=== PATIENT | female | born 1955 | race Caucasian/White ===

== ENCOUNTER 2017-02-20 10:40 | Day surgery (SDC) | payer BC ==
[~2017-02-20] VITALS: Ht 170.2 cm; Wt 64.9 kg
[~2017-02-20 10:40] MED LIST: Armour Thyroid90 MG PO; ESCI10 PO; METO25ER PO; TRAZ50 PO; ZOLP10 PO
== END 2017-02-20 12:15 | disposition home or self-care (01) ==
LOC: ORSCSDS 10:40
PROVIDERS: Surgery
PROC: 0DBP8ZX Excision of Rectum, Via Natural or Artificial Opening Endoscopic, Diagnostic (ICD-10-PCS; principal; 2017-02-20 12:00)
DX: Z12.11 Encounter for screening for malignant neoplasm of colon (principal); Z80.0 Family history of malignant neoplasm of digestive organs; Z87.891 Personal history of nicotine dependence; Z98.84 Bariatric surgery status; F41.8 Other specified anxiety disorders; Z79.899 Other long term (current) drug therapy
CPT/HCPCS: 88305

== ENCOUNTER → 2018-06-23 | Outpatient (CLI) | payer BC | END | disposition home or self-care (01) | LOC: LAB SHORT 11:32 → PLD 11:32 | DX: D22.5 Melanocytic nevi of trunk (principal) | CPT/HCPCS: 88305 ==

== ENCOUNTER 2019-07-20 11:45 | Emergency (ER) | payer BC ==
[~2019-07-20] VITALS: Ht 170.2 cm; Wt 63.0 kg
[2019-07-20] MEDS ORDERED: Percocet 5-3251 EACH PO (15:08)
== END 2019-07-20 15:15 | disposition home or self-care (01) ==
LOC: ER 11:45
DX: S82.65XA Nondisplaced fracture of lateral malleolus of left fibula, initial encounter for closed fracture (principal); Z88.6 Allergy status to analgesic agent; Z88.8 Allergy status to other drugs, medicaments and biological substances; Z85.118 Personal history of other malignant neoplasm of bronchus and lung; X50.1XXA Overexertion from prolonged static or awkward postures, initial encounter
CPT/HCPCS: 29505; 73610; 99283-25